=== PATIENT | male | born 1985 | race Caucasian/White ===

== ENCOUNTER 2018-03-02 21:32 | Emergency (ER) | payer OTHER ==
--- NOTE | 2018-03-02 22:07 | EDM.PDOC ---
ED HPI GENERAL MEDICAL PROBLEM - General Chief Complaint: Eye Problems Stated Complaint: CHEMICAL IN HIS EYE Time Seen by Provider: 03/02/18 22:07 Source of Information: Reports: Patient - History of Present Illness INITIAL COMMENTS - FREE TEXT/NARRATIVE: HISTORY AND PHYSICAL: History of present illness: [ Patient presents with eye irritation, 48 hours prior to arrival he did get a fungicide in his eye pleases called Manzate, or Manzine. Eyes irritated and burning there is no visual change or light sensitivity pH is 7.4, sclerae injected no corneal abrasion Did discuss the case with poison control apparently they had Manzate on file is a non-caustic fungicide but is just an irritation can only require symptomatic treatment No other symptoms such as fever nausea vomiting chills sweats only right eye affected ] Review of systems: As per history of present illness and below otherwise all systems reviewed and negative. Past medical history: As per history of present illness and as reviewed below otherwise noncontributory. Surgical history: As per history of present illness and as reviewed below otherwise noncontributory. Social history: No reported history of drug or alcohol abuse. Family history: As per history of present illness and as reviewed below otherwise noncontributory. Physical exam: HEENT: Atraumatic, normocephalic, pupils reactive, negative for conjunctival pallor or scleral icterus, mucous membranes moist, throat clear, neck supple, nontender, trachea midline. Injected sclera no corneal abrasion Lungs: Clear to auscultation, breath sounds equal bilaterally, chest nontender. Heart: S1S2, regular, negative for clicks, rubs, or JVD. Abdomen: Soft, nondistended, nontender. Negative for masses or hepatosplenomegaly. Negative for costovertebral tenderness. Pelvis: Stable nontender. Genitourinary: Deferred. Rectal: Deferred. Extremities: Atraumatic, negative for cords or calf pain. Neurovascular unremarkable. Neuro: Awake, alert, oriented. Cranial nerves II through XII unremarkable. Cerebellum unremarkable. Motor and sensory unremarkable throughout. Exam nonfocal. Diagnostics: [Wood's lamp floors a ] Therapeutics: [I was again flushed Erythromycin ointment 4 times a day 5 days ] Impression: [Chemical conjunctivitis] Definitive disposition and diagnosis as appropriate pending reevaluation and review of above. Right Eye Pain Score (Numeric/FACES): 6 - Related Data Allergies Allergy/AdvReac Type Severity Reaction Status Date / Time bee venom protein (honey bee) Allergy Hives Verified 03/02/18 21:58 Home Meds: Home Meds . [No Known Home Meds] 03/02/18 [History] Past Medical History - Past Health History Medical/Surgical History: Denies Medical/Surgical History Social & Family History - Tobacco Use Smoking Status *Q: Current Every Day Smoker Years of Tobacco use: 15 Packs/Tins Daily: 1 ED ROS GENERAL - Review of Systems Review Of Systems: See Below ED EXAM GENERAL W FULL EYE - Physical Exam Exam: See Below Course - Vital Signs Last Recorded V/S: Last Vital Signs Temp 97.8 F 03/02/18 21:56 Pulse 68 03/02/18 21:56 Resp 16 03/02/18 21:56 BP 131/71 03/02/18 21:56 Pulse Ox 100 03/02/18 21:56 - Orders/Labs/Meds Orders: Active Orders 24 hr Category Date Time Status Erythromycin Base [Erythromycin 0.5% Ophth Oint] Med 03/02/18 23:12 Once 1 gm EYEBOTH ONETIME ONE Meds: Medications Discontinued Medications Generic Name Dose Route Start Last Admin Trade Name Freq PRN Reason Stop Dose Admin Proparacaine HCl 1 ml 03/02/18 22:09 03/02/18 22:20 Proparacaine 0.5% Ophth Soln EYEBOTH 03/02/18 22:10 1 dose NOW STA Administration Departure - Departure Time of Disposition: 23:14 Disposition: Home, Self-Care 01 Condition: Good Clinical Impression: Conjunctivitis - Discharge Information Referrals: PCP,None [Primary Care Provider] - Forms: ED Department Discharge Additional Instructions: Medication as prescribed Return if symptoms persist or worsen Follow-up ophthalmology if symptoms persist or worsen, appointment can be obtained a phone number below [address] [address] The following information is given to patients seen in the emergency department who are being discharged to home. This information is to outline your options for follow-up care. We provide all patients seen in our emergency department with a follow-up referral. The need for follow-up, as well as the timing and circumstances, are variable depending upon the specifics of your emergency department visit. If you don't have a primary care physician on staff, we will provide you with a referral. We always advise you to contact your personal physician following an emergency department visit to inform them of the circumstance of the visit and for follow-up with them and/or the need for any referrals to a consulting specialist. The emergency department will also refer you to a specialist when appropriate. This referral assures that you have the opportunity for follow-up care with a specialist. All of these measure are taken in an effort to provide you with optimal care, which includes your follow-up. Under all circumstances we always encourage you to contact your private physician who remains a resource for coordinating your care. When calling for follow-up care, please make the office aware that this follow-up is from your recent emergency room visit. If for any reason you are refused follow-up, please contact the [facility] emergency department at and asked to speak to the emergency department charge nurse. - My Orders Last 24 Hours: My Active Orders 03/02/18 23:12 Erythromycin Base [Erythromycin 0.5% Ophth Oint] 1 gm EYEBOTH ONETIME ONE - Assessment/Plan Last 24 Hours: My Active Orders 03/02/18 23:12 Erythromycin Base [Erythromycin 0.5% Ophth Oint] 1 gm EYEBOTH ONETIME ONE
[2018-03-02] MEDS ORDERED: Proparacaine 0.5% Ophth Soln 15 ML Bottle EYEBOTH STA (22:09)
[2018-03-02] MEDS ORDERED: Erythromycin Base 0.5% Ophth Oint 1 GM Tube EYEBOTH ONE (23:12)
== END 2018-03-02 23:45 | disposition home or self-care (01) ==
LOC: EDBD → MW.ED 21:32
DX: T60.3X1A Toxic effect of herbicides and fungicides, accidental (unintentional), initial encounter (principal); H10.211 Acute toxic conjunctivitis, right eye; Z91.030 Bee allergy status; F17.210 Nicotine dependence, cigarettes, uncomplicated
CPT/HCPCS: 99283; A9270

== ENCOUNTER 2018-03-06 15:15 | Emergency (ER) | payer OTHER ==
[2018-03-06] MEDS ORDERED: Proparacaine 0.5% Ophth Soln 15 ML Bottle EYEBOTH STA (15:27)
--- NOTE | 2018-03-06 15:54 | EDM.PDOC ---
ED HPI GENERAL MEDICAL PROBLEM - General Chief Complaint: Eye Problems Stated Complaint: SOMETHING IN PT'S EYE Time Seen by Provider: 03/06/18 15:18 Source of Information: Reports: Patient History Limitations: Reports: No Limitations - History of Present Illness INITIAL COMMENTS - FREE TEXT/NARRATIVE: HISTORY AND PHYSICAL: History of present illness: Patient is a 32-year-old male who presents to the emergency room with complaints of a foreign body to the right. He was seen on 03/02/2018 after a chemical exposure. He had a thorough eye exam at that time and was placed on erythromycin ointment. The patient reports that as the irritation, swelling and redness of his eye had decreased he noticed a foreign body to the iris. He states "I can feel it". He denies any new injury, trauma or this to the affected eye. Denies any change in vision. Review of systems: As per history of present illness and below otherwise all systems reviewed and negative. Past medical history: As per history of present illness and as reviewed below otherwise noncontributory. Surgical history: As per history of present illness and as reviewed below otherwise noncontributory. Social history: No reported history of drug or alcohol abuse. Family history: As per history of present illness and as reviewed below otherwise noncontributory. Physical exam: General: Developed and well-nourished 32-year-old male. Alert and oriented. Nontoxic appearing and in no acute distress. HEENT: Atraumatic, normocephalic, pupils equal and reactive bilaterally, negative for conjunctival pallor or scleral icterus, mild sclear injection to right with with small FB noted to the 6 o'clock position, mucous membranes moist , throat clear, neck supple, nontender, trachea midline. No drooling or trismus noted. No meningeal signs Lungs: Clear to auscultation, breath sounds equal bilaterally, chest nontender. Heart: S1S2, regular rate and rhythm without overt murmur Abdomen: Soft, nondistended, nontender. Negative for masses or hepatosplenomegaly. Negative for costovertebral tenderness. Pelvis: Stable nontender. Genitourinary: Deferred. Rectal: Deferred. Skin: Intact, warm, dry. No lesions or rashes noted. Extremities: Atraumatic, negative for cords or calf pain. Neurovascular unremarkable. Neuro: Awake, alert, oriented. Cranial nerves II through XII unremarkable. Cerebellum unremarkable. Motor and sensory unremarkable throughout. Exam nonfocal. Notes: Visual exam was completed, 20/20, does not wear contacts or glasses. Proparacaine was used to anesthetize the area. There does appear to have a small speck of foreign body to the 6 o'clock position on the iris, mild irritation noted to the sclera. Explained removal of FB, risks and benefits - patient is agreeable to removal. The foreign body was easily extracted with a sharp needle point, does appear to have a slight residue/rust ring remaining. Patietn reports he feels much improved. Dr Patricia, opthomolgy, was consulted on this case. He will see patient tomorrow anytime before 10am at his clinic. Requests patient be placed on Ofloxacin gtts. Information was shared with the patient. He voices understanding and is agreeable to plan of care. Denies any further questions or concerns at this time. Diagnostics: Eye exam Therapeutics: Propairicane Prescription: Ofloxacin gtts Impression: Foreign body, right eye Plan: 1. Please use the eyedrops as directed. 2. Avoid excess rubbing of the eyes 3. Follow-up with the mingler operator, , at [facility] on 03/07/2018, anytime between 8-10am. 4. Return to the ED as needed and as discussed. Definitive disposition and diagnosis as appropriate pending reevaluation and review of above. Right Eye Pain Score (Numeric/FACES): 10 - Related Data Allergies Allergy/AdvReac Type Severity Reaction Status Date / Time bee venom protein (honey bee) Allergy Hives Verified 03/06/18 15:29 Home Meds: Home Meds Ofloxacin [Ocuflox 0.3% Ophth Soln] 1 drop EYERT DAILY #1 bottle 03/06/18 [Rx] Past Medical History - Past Health History Medical/Surgical History: Denies Medical/Surgical History Social & Family History - Family History Family Medical History: Noncontributory - Tobacco Use Smoking Status *Q: Current Every Day Smoker Years of Tobacco use: 8 Packs/Tins Daily: 1 - Caffeine Use Caffeine Use: Reports: None - Recreational Drug Use Recreational Drug Use: No ED ROS GENERAL - Review of Systems Review Of Systems: ROS reveals no pertinent complaints other than HPI. ED EXAM GENERAL W FULL EYE - Physical Exam Exam: See Below (See dictation) Course - Vital Signs Last Recorded V/S: Last Vital Signs Temp 98.0 F 03/06/18 15:26 Pulse 96 03/06/18 15:26 Resp 18 03/06/18 15:26 BP 131/71 03/06/18 15:26 Pulse Ox 97 03/06/18 15:26 - Orders/Labs/Meds Meds: Medications Discontinued Medications Generic Name Dose Route Start Last Admin Trade Name Tim PRN Reason Stop Dose Admin Proparacaine HCl 1 ml 03/06/18 15:27 03/06/18 16:02 Proparacaine 0.5% Ophth Soln EYEBOTH 03/06/18 15:28 1 ml NOW STA Administration Departure - Departure Time of Disposition: 15:54 Disposition: Home, Self-Care 01 Clinical Impression: Foreign body, eye Qualifiers: Encounter type: initial encounter Laterality: right Qualified Code(s): T15.91XA - Foreign body on external eye, part unspecified, right eye, initial encounter - Discharge Information Prescriptions: Ofloxacin [Ocuflox 0.3% Ophth Soln] 1 drop EYERT DAILY #1 bottle Instructions: Eye Foreign Body, [id number] Referrals: PCP,None [Primary Care Provider] - Forms: ED Department Discharge Additional Instructions: The following information is given to patients seen in the emergency department who are being discharged to home. This information is to outline your options for follow-up care. We provide all patients seen in our emergency department with a follow-up referral. The need for follow-up, as well as the timing and circumstances, are variable depending upon the specifics of your emergency department visit. If you don't have a primary care physician on staff, we will provide you with a referral. We always advise you to contact your personal physician following an emergency department visit to inform them of the circumstance of the visit and for follow-up with them and/or the need for any referrals to a consulting specialist. The emergency department will also refer you to a specialist when appropriate. This referral assures that you have the opportunity for follow-up care with a specialist. All of these measure are taken in an effort to provide you with optimal care, which includes your follow-up. Under all circumstances we always encourage you to contact your private physician who remains a resource for coordinating your care. When calling for follow-up care, please make the office aware that this follow-up is from your recent emergency room visit. If for any reason you are refused follow-up, please contact the [facility] Emergency Department at and asked to speak to the emergency department charge nurse. [address] [address] 1. Please use the eyedrops as directed. 2. Avoid excess rubbing of the eyes 3. Follow-up with the mingler operator, , at [facility] on 03/07/2018, anytime between 8-10am. 4. Return to the ED as needed and as discussed.
== END 2018-03-06 16:02 | disposition home or self-care (01) ==
LOC: MW.ED 15:15
DX: T15.81XA Foreign body in other and multiple parts of external eye, right eye, initial encounter (principal); F17.210 Nicotine dependence, cigarettes, uncomplicated; Z91.030 Bee allergy status
CPT/HCPCS: 65205; 99282; 99283